=== PATIENT | female | born 1960 | race Caucasian/White ===

== ENCOUNTER 2017-05-27 10:01 | Day surgery (SDC) | payer OTHER ==
[2017-05-27] VITALS (9 sets, daily range): BP systolic 106–131; BP diastolic 58–67; PULSE 83–92; RESP 15–22; Ht 157.5 cm; Wt 63.0 kg
[~2017-05-27] VITALS: Ht 157.5 cm; Wt 63.0 kg
[~2017-05-27 10:01] MED LIST: HYDR-762; LEVO25TA59 PO; LIDOCAINE 1%/EPI (MDV) 20 ML INJ ONE; MORP-72 PO; PROPOFOL 200 MG INJ ONE
--- NOTE | 2017-05-27 14:44 | RADRPT ---
PROCEDURE: XR Chest. CLINICAL INDICATION: Preop TECHNIQUE: AP view of the chest was obtained. COMPARISON: None. FINDINGS: The cardiomediastinal silhouette is within normal limits. The lungs are clear. No pleural effusion or pneumothorax is identified. Noted are multiple surgical clips in the upper abdomen. IMPRESSION: No evidence of active cardiopulmonary disease. RPTAT: VV .Darrell Malik MD, Date Time Electronically viewed and signed by .Darrell Malik MD, on 05/27/2017 14:43 .O/
--- NOTE | 2017-05-27 15:13 | HPN ---
Date/Time of Note Date/Time of Note DATE: 05/27/17 TIME: 15:13 Interval H&P Admission Note Pt. seen H&P reviewed: No system changes NOLAN HERZOG MD May 27, 2017 15:13
--- NOTE | 2017-05-27 15:14 | OPR ---
Date/Time of Note Date/Time of Note DATE: 05/27/17 TIME: 15:13 Operative Report Preoperative Diagnosis retain k wires righ hand Postoperative Diagnosis same Operation/Procedure Performed removal deep k wires Surgeon: NOLAN HERZOG MD Anesthesia: MAC Estimated Blood Loss: none Complications: None NOLAN HERZOG MD May 27, 2017 15:14
[2017-05-27] MEDS ORDERED: LIDOCAINE 1% (STERILE-PAK) 30 ML INJ ONE (15:28)
[2017-05-27] MEDS ORDERED: MIDAZOLAM 1 MG/ML 2 ML INJ ONE (15:38)
[2017-05-27] MEDS ORDERED: FENTAnyl 50 MCG/ML VIAL ONE (15:38)
[2017-05-27] MEDS ORDERED: HYDROmorphONE 2 MG/ML SYG ONE (15:38)
[2017-05-27] MEDS ORDERED: KETAMINE 500 MG INJ ONE (15:48)
[2017-05-27] MEDS ORDERED: ROCURONIUM 50 MG INJ ONE (16:02)
[2017-05-27] MEDS ORDERED: LABETALOL HCL 20MG INJ ONE (16:45)
[2017-05-27] MEDS ORDERED: KETOROLAC 30 MG INJ ONE (17:03)
[2017-05-27] MEDS ORDERED: DIPHENHYDRAMINE 50 MG INJ ONE (17:30)
--- NOTE | 2017-05-27 17:36 | OPR ---
Date/Time of Note Date/Time of Note DATE: 05/27/17 TIME: 17:32 Operative Report Preoperative Diagnosis retain k wires righ hand Postoperative Diagnosis same Operation/Procedure Performed removal deep k wires two preop One foung and removed second left after 1 hour of searcdhing, dissection and multiple x rays Surgeon: NOLAN HERZOG MD Anesthesia: MAC Estimated Blood Loss: none Complications: None Complications one k wire left after prolonged dissection multiple x rays and failure to locate the wire. I think it may be moving very fustrating NOLAN HERZOG MD May 27, 2017 17:36
[2017-05-27] MEDS ORDERED: HYDROmorphONE (0.2 MG/ML) 10ML SYG IV ONE (17:40)
[2017-05-27] MEDS ORDERED: MEPERIDINE 25 MG INJ IV PRN (18:00)
[2017-05-27] MEDS ORDERED: ONDANSETRON 4 MG INJ IV PRN (18:00)
[2017-05-27] MEDS ORDERED: DIPHENHYDRAMINE 50 MG INJ IV PRN (18:00)
[2017-05-27] MEDS ORDERED: LABETALOL HCL 20MG INJ IV PRN (18:00)
[2017-05-27] MEDS ORDERED: HYDROmorphONE (0.2 MG/ML) 10ML SYG IV PRN ×3 (18:00)
[2017-05-27] MEDS ORDERED: FENTAnyl 50 MCG/ML VIAL IV PRN (18:00)
[2017-05-27] MEDS ORDERED: hydrALAzine 20 MG INJ IV PRN (18:00)
--- NOTE | 2017-05-27 23:59 | OPR ---
DATE OF OPERATION: 05/27/2017 PREOPERATIVE DIAGNOSES: 1. Status post resection arthroplasty CMC joint, right thumb, repeated a couple times. 2. Retained Wade wires, 2. PLANNED PROCEDURE: Removal of 2 Wade wires. PROCEDURE ACTUALLY DONE: Removal of 1 K-wire and abandonment on the second. SURGEON: Nolan Sebastian MD COLLAR BASTER JUMPBASTING: Staff. TANK FURNACE OPERATOR: ANESTHESIA TECHNIQUE: General anesthetic by the anesthesiologist, local anesthetic by the surgeon. DESCRIPTION OF PROCEDURE: The patient was taken to surgery under fluoroscopic control. The multiple x-ray images will available for review, probably or 30. SURGICAL PAUSE: The patient was examined preoperative holding area and the anticipated site of the K-wire was marked. We confirmed the operative procedure and plan with the patient awake. INFORMED CONSENT: At the time I scheduled the operative procedure, we talked about the risks and hazards of surgery including operative mortality, wound infection, nerve injury, good result, bad result potential. The patient signed a note confirming that consent. PROCEDURE DESCRIPTION: The patient was taken to surgery, anesthetized as above. First we used the mini C-arm to localize the end of the wires and home them. Under fluoroscopic control, an incision was made and we dissected down to the first K-wire, which was readily found and removed. We spent the next 45- 50 minutes trying to find the second K-wire, which was very obvious on x-ray, but on exploration on the medial, lateral, and radial side of the thumb metacarpal using multiple metal markers, I could not find , I think it moves. I think it is loose in the hand, and every time I push it, it moves someplace else. After about an hour of digging and looking, and looking and digging, and x-ray, I threw up my hands and gave up. I closed the wounds in layers with Vicryl deep and Vicryl Rapide on the skin, and put a bulky dressing and splint. It is there. It is obvious on x rays. It should be easy. It its not. Dictated By: NOLAN COMER/NTS Conf#: [id number] DID#: [id number] MTDD
--- NOTE | 2017-05-28 09:30 | RADRPT ---
PROCEDURE: Intraoperative imaging of the right hand with fluoroscopy. CLINICAL INDICATION: Right hand pain. Intraoperative. TECHNIQUE: 44 images of the right hand were obtained in the operating room with an image intensifi er. No radiologist was in attendance. Fluoroscopy time is unavailable. COMPARISON: No prior study is available for comparison. FINDINGS: Images demonstrate surgical instruments and hardware in the right thumb. IMPRESSION: 1. Intraoperative imaging of the right hand. RPTAT: QQ .Gaudencio Pathak MD, MD Date Time Electronically viewed and signed by .Gaudencio Pathak MD, on 05/28/2017 09:29 .R/
== END 2017-05-27 19:27 | disposition home or self-care (01) ==
LOC: SDS 10:01
PROVIDERS: ATTEND Orthopaedic Surgery Hand Surgery
DX: Z45.89 Encounter for adjustment and management of other implanted devices (principal); Z86.73 Personal history of transient ischemic attack (TIA), and cerebral infarction without residual deficits; J45.909 Unspecified asthma, uncomplicated; F17.200 Nicotine dependence, unspecified, uncomplicated
CPT/HCPCS: 20680; 71010; 73130; 88302; J1170; J1885; J2175; J2250; J2405; J3010; J1200